=== PATIENT | female | born 1980 | race Caucasian/White ===

== ENCOUNTER 2017-03-09 21:18 | Inpatient (IN) | payer OTHER ==
[~2017-03-09] VITALS: Ht 167.6 cm; Wt 82.1 kg
[2017-03-09] MEDS ORDERED: CARBOPROST 250 MCG/ML AMP IM PRN (22:00)
[2017-03-09] MEDS ORDERED: PREN1SGL25 PO (22:00)
[2017-03-09] MEDS ORDERED: METHYLERGONOVINE 0.2 MG/ML AMP IM PRN (22:00)
[2017-03-09] MEDS ORDERED: LACTATED RINGERS 1,000 ML IV SCH (22:00)
[2017-03-09 22:33] LABS: APPEARANCE,URINE SL CLOUDY (CLEAR); BILIRUBIN,URINE NEGATIVE (NEGATIVE); BLOOD, URINE NEGATIVE (NEGATIVE); COLOR,URINE YELLOW (YELLOW); LEUKOCYTE ESTERASE ,URINE 1+ (NEGATIVE); NITRITE, URINE NEGATIVE (NEGATIVE); PROTEIN,URINE NEGATIVE (NEGATIVE); UGLUCOSE NEGATIVE (NEGATIVE); UROBILINOGEN,URINE 0.2 EU/dL (0.2 - 1)
[2017-03-09 22:38] LABS: AMPHETAMINE, URINE NEG. ng/ml (NEG <=1000); BARBITURATE, URINE NEG. ng/ml (NEG <=200); BENZODIAZEPINE, URINE NEG. ng/mL (NEG <=200); CANNABINOID, URINE NEG. ng/mL (NEG <=50); COCAINE, URINE NEG. ng/mL (NEG <=300); OPIATE, URINE NEG. ng/mL (NEG <=2000); PHENCYCLIDINE SCREEN,URINE NEG. ng/mL (NEG <=25)
[2017-03-09 22:54] LABS: BASOPHILS % (AUTO) 0.2 % (0.0-2.0); EOSINOPHILS # (AUTO) 0.1 K/uL (0-0.4); HEMATOCRIT 34.2 % (36-48); HEMOGLOBIN 11.6 g/dL (12.0-16.0); LYMPHOCYTES % (AUTO) 15.5 % (20.5-51.1); MEAN CORPUSCULAR HEMOGLOBIN 29 pg (27-31); MEAN CORPUSCULAR HGB CONC 34 g/dL (33-37); MEAN CORPUSCULAR VOLUME 86 fL (80-94); MONOCYTES # (AUTO) 0.7 K/uL (0.8-1.0); MONOCYTES % (AUTO) 5.3 % (1.7-9.3); PLATELET COUNT (AUTO) 265 K/uL (140-450); RED BLOOD CELL COUNT(AUTO) 3.98 MIL/uL (4.20-5.40); RED CELL DISTRIBUTION WIDTH 12.1 % (11.6-13.7); WHITE BLOOD COUNT (AUTO) 12.8 K/uL (4.8-10.8)
[2017-03-09] MEDS ORDERED: CITRIC ACID/SODIUM CITRATE 30 ML UDC PO SCH (22:55)
[2017-03-09] MEDS ORDERED: ceFAZolin 1,000 MG VIAL ONE (23:07)
[2017-03-09] MEDS ORDERED: CITRIC ACID/SODIUM CITRATE 30 ML UDC ONE (23:08)
[2017-03-09 23:14] LABS: BACTERIA,URINE 2+ /HPF (None Seen); RBC,URINE 0-5 (RARE) /HPF (0-5)
[2017-03-09 23:17] VITALS: BP 126/81
[2017-03-09] MEDS ORDERED: OXYTOCIN 10 UNITS/ML VIAL ONE ×2 (23:20→23:30)
[2017-03-09] MEDS ORDERED: BUPIVACAINE-MPF 0.75% 10 ML VIAL INJ ONE (23:30)
[2017-03-09] MEDS ORDERED: ONDANSETRON 4 MG/2 ML VIAL ONE (23:30)
[2017-03-09] MEDS ORDERED: KETOROLAC 30 MG/ML VIAL ONE (23:30)
[2017-03-09] MEDS ORDERED: KETOROLAC 30 MG/ML VIAL IVP PRN (23:55)
[2017-03-09] MEDS ORDERED: OXYTOCIN 20 UNITS/LR PREMIX 1,000 ML IV SCH (23:55)
[2017-03-10] MEDS ORDERED: MEASLES, MUMPS, AND RUBELLA 1 VIAL SQVAC PRN (00:10)
[2017-03-10] MEDS ORDERED: oxyCODONE/APAP 5/325 MG 1 TAB TAB PO PRN (00:10)
[2017-03-10] MEDS ORDERED: TRIMETHOBENZAMIDE 200 MG/2 ML SYR IM PRN (00:10)
[2017-03-10] MEDS ORDERED: METHYLERGONOVINE 0.2 MG/ML AMP IM PRN (00:10)
[2017-03-10] MEDS ORDERED: HYDROcodone/APAP 5/325 MG 1 TAB TAB PO PRN (00:10)
[2017-03-10] MEDS ORDERED: TEMAZEPAM 15 MG CAP PO PRN (00:10)
[2017-03-10] MEDS ORDERED: OXYTOCIN 20 UNITS/LR PREMIX 1,000 ML IV ONE (00:20)
[2017-03-10] MEDS ORDERED: HYDROmorphone 1 MG/ML AMP IVP PRN ×2 (00:20)
[2017-03-10] MEDS: OXYTOCIN 20 UNITS/LR PREMIX 1,000 ML IV SCH ×3 (05:35→22:36)
--- NOTE | 2017-03-10 08:01 | NUR ---
PATIENT HAS BEEN SCREENED AND CATEGORIZED LOW NUTRITION RISK. PATIENT WILL BE SEEN WITHIN 7 DAYS OF ADMISSION. 03/16/[address]
[2017-03-10] MEDS: KETOROLAC 30 MG/ML VIAL IVP PRN ×3 (10:08→21:48)
[2017-03-10] MEDS: DOCUSATE SOD/SENNA 50/8.6 MG 1 TAB PO SCH (21:23)
[2017-03-11] MEDS: KETOROLAC 30 MG/ML VIAL IVP PRN (04:24)
[2017-03-11 06:33] LABS: BASOPHILS % (AUTO) 0.2 % (0.0-2.0); EOSINOPHILS # (AUTO) 0.4 K/uL (0-0.4); EOSINOPHILS % (AUTO) 2.4 % (0.0-4.0); HEMATOCRIT 32.5 % (36-48); HEMOGLOBIN 10.8 g/dL (12.0-16.0); LYMPHOCYTES # (AUTO) 1.8 K/uL (2.5-16.5); LYMPHOCYTES % (AUTO) 11.7 % (20.5-51.1); MEAN CORPUSCULAR HEMOGLOBIN 29 pg (27-31); MEAN CORPUSCULAR HGB CONC 33 g/dL (33-37); MEAN CORPUSCULAR VOLUME 87 fL (80-94); MONOCYTES # (AUTO) 0.7 K/uL (0.8-1.0); MONOCYTES % (AUTO) 4.4 % (1.7-9.3); NEUTROPHILS # (AUTO) 12.3 K/uL (1.8-7.7); NEUTROPHILS % (AUTO) 81.3 % (42.2-75.2); PLATELET COUNT (AUTO) 244 K/uL (140-450); RED BLOOD CELL COUNT(AUTO) 3.73 MIL/uL (4.20-5.40); RED CELL DISTRIBUTION WIDTH 12.5 % (11.6-13.7)
[2017-03-11 07:02] LABS: WHITE BLOOD COUNT (AUTO) 15.2 K/uL (4.8-10.8)
[2017-03-11] MEDS: IBUPROFEN 800 MG TAB PO PRN ×2 (12:03→18:14)
[2017-03-11] MEDS: SIMETHICONE 80 MG TAB.CHEW PO PRN ×2 (12:03→18:14)
[2017-03-11] MEDS: DOCUSATE SOD/SENNA 50/8.6 MG 1 TAB PO SCH (20:48)
[2017-03-12] MEDS: IBUPROFEN 800 MG TAB PO PRN ×3 (02:53→19:05)
== END 2017-03-12 21:20 | disposition home or self-care (01) | DRG 540 ==
LOC: MLD 21:18 → MFCC 03-10 01:20
PROVIDERS: ADMIT Obstetrics & Gynecology; ATTEND Obstetrics & Gynecology
PROC: 10D00Z1 Extraction of Products of Conception, Low, Open Approach (ICD-10-PCS; principal; 2017-03-09 23:30)
DX: O32.1XX0 Maternal care for breech presentation, not applicable or unspecified (principal); O99.324 Drug use complicating childbirth; F41.0 Panic disorder [episodic paroxysmal anxiety]; O99.344 Other mental disorders complicating childbirth; O75.89 Other specified complications of labor and delivery; F34.0 Cyclothymic disorder; F19.10 Other psychoactive substance abuse, uncomplicated; O99.314 Alcohol use complicating childbirth; F41.1 Generalized anxiety disorder; Z3A.39 39 weeks gestation of pregnancy; Z37.0 Single live birth; O09.523 Supervision of elderly multigravida, third trimester; Z28.21 Immunization not carried out because of patient refusal; Z88.8 Allergy status to other drugs, medicaments and biological substances
CPT/HCPCS: 36415; 76815; 80305; 81001; 85025; 86592; 86886; 86900; 86901; 87086; J0690; J1885; J2405; J2590; J3490; J7120; Q0092